=== PATIENT | male | born 1990 | race Caucasian/White ===

== ENCOUNTER 2019-03-30 08:08 | Day surgery (SDC) | payer OTHER ==
[~2019-03-30 08:08] MED LIST: CEPH500 PO; SULTRIDS PO
== END 2019-03-30 23:30 | disposition home or self-care (01) ==
LOC: US 08:08
DX: R59.0 Localized enlarged lymph nodes (principal); F32.9 Major depressive disorder, single episode, unspecified
CPT/HCPCS: 76882